=== PATIENT | male | born 1955 | race Caucasian/White ===

== ENCOUNTER 2025-02-23 07:59 | Emergency (ER) | payer MEDICARE, SELFPAY ==
[2025-02-23 08:18] VITALS: BP 147/91; PULSE 84; RESP 16; TEMP 37.1; O2SAT 95; BMI 25.7
--- NOTE | 2025-02-23 08:22 | W.ED.DENTAL ---
HPI - Dental/Oral General: Chief complaint: Dental/Oral Stated complaint: left side tooth pain Time Seen by Provider: 02/23/25 08:18 History of Present Illness: 69-year-old man who presents emergency room with left lower dental pain. This been going on for a few days but he has not been able to get into see a dentist. He has a broken tooth with fairly extensive swelling around it. No systemic fevers. Related Data Previous Rx's ?Medication ?Instructions ?Recorded amoxicillin 875 mg-potassium 1 tab PO BID 10 days #20 tabs 02/23/25 clavulanate 125 mg tablet hydrocodone 5 mg-acetaminophen 325 1 tab PO Q8H PRN pain #14 tabs 02/23/25 mg tablet polyethylene glycol 3350 17 17 g PO DAILY #510 grams 02/23/25 gram/dose oral powder (Miralax) Allergies Allergy/AdvReac Type Severity Reaction Status Date / Time No Known Allergies Allergy Unverified 02/01/25 14:30 Review of Systems Narrative: Constitutional symptoms: Negative except as documented in HPI. Skin symptoms: Negative except as documented in HPI. Eye symptoms: Negative except as documented in HPI. ENMT symptoms: Negative except as documented in HPI. Respiratory symptoms: Negative except as documented in HPI. Cardiovascular symptoms: Negative except as documented in HPI. Gastrointestinal symptoms: Negative except as documented in HPI. Genitourinary symptoms: Negative except as documented in HPI. Musculoskeletal symptoms: Negative except as documented in HPI. Neurologic symptoms: Negative except as documented in HPI. Psychiatric symptoms: Negative except as documented in HPI. Endocrine symptoms: Negative except as documented in HPI. [facility] ED PFSH: Social History Smoking and tobacco/nicotine status: former use of tobacco/nicotine Physical Exam Narrative: EXAM NARRATIVE: General: Alert, no acute distress. Skin: warm and dry Head: Normocephalic Neck: Trachea midline Eye: Extraocular movements are intact. Ears, nose, mouth and throat: Oral mucosa moist, left lower most posterior molar is fractured and has surrounding erythema most like an abscess. Respiratory: Respirations are non-labored Musculoskeletal: Normal ROM Gastrointestinal: Abdomen does not appear distended Neurological: Alert and oriented, No focal neurological deficit observed. Psychiatric: Cooperative, appropriate mood & affect. Course Vital Signs: Vital signs: Vital Signs Temperature 98.8 F 02/23/25 08:18 Pulse Rate 84 02/23/25 08:18 Respiratory Rate 16 02/23/25 08:18 Blood Pressure 147/91 02/23/25 08:18 Pulse Oximetry 95 02/23/25 08:18 Oxygen Delivery Me thod Room Air 02/23/25 08:18 MDM - Dental/Oral Medical Decision Making Medical decision making Patient's reason for coming to the emergency room: Dental pain Social determinants: Patient is retired I reviewed the patient's medical record. 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 This patient has an obvious dental infection. Possible abscess. No further workup indicated. Will treat with antibiotics and the patient needs to follow-up with a dentist. Assessment and plan: Dental abscess - Discharged home - Discussed plan with patient. Answered any questions. - Evaluation and treatment of this problem were appropriate in the emergency setting. No radiology studies performed this visit Discharge Plan Discharge Patient Disposition: Home Clinical Impression: Dental abscess Condition: Stable Prescriptions: New hydrocodone-acetaminophen 5-325 mg tablet 1 tab PO Q8H PRN (Reason: pain) Qty: 14 0RF Rx Instructions: Take 1/2 to 1 tab every 8 hours as needed for pain polyethylene glycol 3350 [Miralax] 17 gram/dose powder 17 g PO DAILY Qty: 510 0RF Rx Instructions: Take 1 scoop daily while taking pain medications. amoxicillin-pot clavulanate 875-125 mg tablet 1 tab PO BID 10 Days Qty: 20 0RF Discharge Orders: Discharge ED (Routine); Ordered 02/23/25 Ordered By: Sapphire Gupta Discharge Diet: Advance as tolerated Discharge Activity: Increase activity as tolerated Patient Instructions: Dental Abscess (ED), Opioid Safety, Pain Management, Patient Portal & Bebe Instructions Activity Restrictions/Additional Instructions: Please follow with a dentist as soon as possible Thank you for choosing [facility] for your healthcare needs today. You have been screened and evaluated and felt safe for discharge. Health conditions do change or evolve sometimes and as such it is important that you follow up with your Primary Doctor to be re checked, 3-5 days is a general good time frame for follow up. You are always welcome to return to the ED for re assessment if your symptoms are worsening or you have new concerns. (Please note that included in your discharge packet is information concerning opioid safety and pain management. This information is given to all patients who are discharged from the ER regardless of their discharge diagnosis or the medicines they usually take or are prescribed.) Print Language: Belgian Coding Level of Care Code ED Voice Network Engineer for Maya Mckenna
== END 2025-02-23 08:35 | disposition home or self-care (01) ==
PROVIDERS: Emergency Provider Emergency Medicine
DX: K04.7 Periapical abscess without sinus (principal); Z87.891 Personal history of nicotine dependence
CPT/HCPCS: 99283